=== PATIENT | female | born 1980 | race Caucasian/White ===

== ENCOUNTER → 2020-11-23 | Outpatient (CLI) | payer OTHER ==
--- NOTE | 2020-11-23 13:09 | Diagnostic Imaging Report ---
INDICATION: Routine screening. No prior mammograms are available for comparison. This is a baseline study. 2-D and 3-D bilateral screening mammography was performed with CAD. Scattered fibroglandular densities are identified bilaterally. There are 2 circumscribed low-density nodules in the outer aspects of the right breast. These are superiorly located on the MLO view, most likely represent intraparenchymal lymph nodes or small cysts. The left breast is unremarkable. No suspicious microcalcifications are seen. Axillae are unremarkable. IMPRESSION: 1. Circumscribed nodules in the upper outer right breast approximately 8 and 11 cm from the nipple. Further evaluation of this area with ultrasound is recommended. No other abnormality is seen. BI-RADS Category 0 ACR BI-RADS Category 0: Incomplete. (Needs additional imaging evaluation). Result letter will be mailed to the patient. Note: At least 10% of breast cancer is not imaged by mammography. Dictated by: Dictated on workstation # [id number]
== END ==
LOC: RAD 09:15
PROVIDERS: ATTEND Nurse Practitioner Family
DX: Z12.31 Encounter for screening mammogram for malignant neoplasm of breast (principal); N63.11 Unspecified lump in the right breast, upper outer quadrant
CPT/HCPCS: 77063; 77067

== ENCOUNTER → 2020-11-30 | Outpatient (CLI) | payer OTHER ==
--- NOTE | 2020-11-30 14:35 | Diagnostic Imaging Report ---
INDICATION: Abnormal screening mammogram. CORRELATION is made with screening mammogram from 11/23/2020. Sonographic interrogation of the upper outer right breast was performed. There are 2 subcentimeter lymph nodes in the upper outer right breast. The lymph node at the 9:00 location, 10 cm from the nipple measures 7 mm x 4 mm x 9 mm and likely accounts for mammographic density. There is a lymph node at the 10:00 location, 7 cm from the nipple measuring 7 mm x 3 mm x 5 mm, likely accounting for the mammographic density. No suspicious mass is detected. IMPRESSION: BI-RADS Category 2 Intraparenchymal lymph nodes in the upper outer right breast correlating with the mammographic densities. The patient may return to routine annual screening Patient tolerated the procedure and there were no immediate postprocedure complications. ACR BI-RADS Category 2: Benign findings. Result letter will be mailed to the patient. Note: At least 10% of breast cancer is not imaged by mammography. Dictated by: Dictated on workstation # [id number]
== END ==
LOC: RAD 11:00
PROVIDERS: ATTEND Nurse Practitioner Family
DX: N63.0 Unspecified lump in unspecified breast (principal)